=== PATIENT | male | born 1980 | race Caucasian/White ===

== ENCOUNTER 2016-12-12 02:47 | Emergency (ER) | payer MEDICARE, OTHER ==
[~2016-12-12] VITALS: Ht 180.3 cm; Wt 78.0 kg
[2016-12-12 02:50] VITALS: BP 135/75; PULSE 76; RESP 16; TEMP 99.6; O2SAT 96
[2016-12-12 05:21] VITALS: BP 151/94; PULSE 66; RESP 16; O2SAT 97
[2016-12-12] MEDS ORDERED: DOXE10CA PO (05:29)
[2016-12-12] MEDS ORDERED: NEUR300C PO (05:29)
[2016-12-12] MEDS ORDERED: CLOM50TA2 PO (05:29)
[2016-12-12] MEDS ORDERED: [UNRECOGNIZED DRUG - CODE] (05:29)
[2016-12-12] MEDS ORDERED: DULO1CAP3 PO (05:29)
[2016-12-12] MEDS ORDERED: BUPR100T4 PO (05:29)
[2016-12-12] MEDS ORDERED: NADO40TA PO (05:29)
[2016-12-12] MEDS ORDERED: CETI10 PO (05:29)
--- NOTE | 2016-12-12 05:29 | PD ---
HPI Chief Complaint: Abdominal Pain Time Seen by Provider: 05:29 Travel History International Travel<30 days: No Contact w/Intl Traveler<30days: No Traveled to known affect area: No History of Present Illness HPI 36-year-old male came to the emergency room with history of right sided abdominal pain that is acute on chronic. 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 He always has some pain on the right side but for past few days the pain has worsened. He is nauseous but no vomiting. No history of fever or chills. His vital signs were stable in the emergency room. Pain is worse on movement. Pain is just there most of the time and waxes and wanes. PFSH Past Medical History Narrative Medical List of his past medical, surgical, social and family history reviewed from the nursing note. Depression: Yes Diminished Hearing: No Gastrointestinal Disorders: Yes (portal vein htn) Tetanus Vaccination: < 5 Years Past Surgical History Cholecystectomy: Yes (2004) Other Surgery: Yes (sleenectomy 2004) Social History Alcohol Use: Yes (beer monthly) Tobacco Use: No Allergies-Medications (Allergen,Severity, Reaction): Coded Allergies: Reglan (Verified Adverse Reaction, Intermediate, Twitching, 12/12/16) Amoxicillin (Verified Adverse Reaction, Mild, Nausea/Vomiting, 12/12/16) Comments List of his allergies reviewed from the nursing note. Reported Meds & Prescriptions Reported Meds & Active Scripts Active Flagyl (Metronidazole) 250 Mg Tab 250 Mg PO TID 10 Days Ciprofloxacin (Ciprofloxacin HCl) 500 Mg Tab 500 Mg PO BID 10 Days Reported Clomiphene (Clomiphene Citrate) 50 Mg Tab 0.5 Tab PO DAILY Clomiphene (Clomiphene Citrate) 1 Powd Doxepin (Doxepin HCl) 10 Mg Cap 20 Mg PO HS Bupropion HCl 100 Mg Tab 150 Mg PO DAILY Cetirizine (Cetirizine HCl) 10 Mg Tab 10 Mg PO DAILY Nadolol 40 Mg Tab 40 Mg PO DAILY Duloxetine DR (Duloxetine HCl) 60 Mg Capdr 60 Mg PO DAILY Neurontin (Gabapentin) 300 Mg Cap 300 Mg PO TID Narrative Medication List of his home medications reviewed from the nursing note. Review of Systems Except as stated in HPI: all other systems reviewed are Neg Physical Exam Narrative GENERAL: Awake, alert, moderate distress SKIN: Focused skin assessment warm/dry. HEAD: Atraumatic. Normocephalic. EYES: Pupils equal and round. Slight scleral icterus. No injection or drainage. ENT: No nasal bleeding or discharge. Mucous membranes pink and moist. NECK: Trachea midline. No JVD. CARDIOVASCULAR: Regular rate and rhythm. No murmur appreciated. RESPIRATORY: No accessory muscle use. Clear to auscultation. Breath sounds equal bilaterally. GASTROINTESTINAL: Abdomen soft, right flank tenderness, nondistended. Hepatic and splenic margins not palpable. MUSCULOSKELETAL: No obvious deformities. No clubbing. No cyanosis. No edema. NEUROLOGICAL: Awake and alert. No obvious cranial nerve deficits. Motor grossly within normal limits. Normal speech. PSYCHIATRIC: Appropriate mood and affect; insight and judgment normal. Data Data Last Documented VS Orders Complete Blood Count With Diff (12/12/16 05:30) Comprehensive Metabolic Panel (12/12/16 05:30) Prothrombin Time / Inr (Pt) (12/12/16 05:30) Lipase (12/12/16 05:33) Ct Abd/Pel W/O Iv Contrast (12/12/16 ) Sodium Chlor 0.9% 1000 Ml Inj (Ns 1000 M (12/12/16 05:45) Morphine Inj (Morphine Inj) (12/12/16 05:45) Direct Bilirubin (12/12/16 05:33) Ciprofloxacin (Cipro) (12/12/16 07:00) Metronidazole (Flagyl) (12/12/16 07:00) Labs MDM Medical Decision Making Medical Screen Exam Complete: Yes Emergency Medical Condition: Yes Medical Record Reviewed: Yes Differential Diagnosis Colitis, acute appendicitis, acute on chronic abdominal pain Narrative Course 6:54 AM blood test results of back and patient has slight hyperbilirubinemia but otherwise within normal limits. CAT scan result is back and shows this nonspecific right-sided mesenteric edema with some tethering of the bowel loops. However given patient's previous surgical history these could be chronic changes with some acute exacerbation. No obstruction could be seen. I have given him a dose of Cipro and Flagyl and I'll discharge him home on prescription for those for 10 days. Procedures EKG Prior to Arrival: No Diagnosis Primary Impression: Abdominal pain Qualified Code: R10.11 - Right upper quadrant abdominal pain Additional Impression: Chronic abdominal pain Referrals: Primary Care Physician Additional Instructions: Please take the medication as per the prescription direction. Follow-up with her primary care in next couple days. Return to the ER if symptoms worsen or any other new concerns. Med/Other Pt SpecificInfo: Prescription(s) given Scripts Metronidazole (Flagyl)250 Mg [id number] Mg PO TID 10 Days Ref 0 Prov:Jabier Boyle MD 12/12/16 Ciprofloxacin 500 Mg [id number] Mg PO BID 10 Days Ref 0 Prov:Jabier Boyle MD 12/12/16 Disposition: DISCHARGE HOME Condition: Stable Jabier Boyle MD December 12, 2016 05:29 Basophils (%) (Auto) 1.6 % Neutrophils # (Auto) 6.4 TH/MM3 Lymphocytes # (Auto) 1.3 TH/MM3 Monocytes # (Auto) 1.1 TH/MM3 Eosinophils # (Auto) 0.1 TH/MM3 Basophils # (Auto) 0.1 TH/MM3 CBC Comment DIFF FINAL Differential Comment Prothrombin Time 11.8 SEC Prothromb Time International 1.1 RATIO Ratio Sodium Level 141 MEQ/L Potassium Level 4.0 MEQ/L Chloride Level 106 MEQ/L Carbon Dioxide Level 27.5 MEQ/L Anion Gap 8 MEQ/L Blood Urea Nitrogen 6 MG/DL Creatinine 0.71 MG/DL Estimat Glomerular Filtration 126 ML/MIN Rate Random Glucose 120 MG/DL Calcium Level 9.2 MG/DL Total Bilirubin 1.3 MG/DL Aspartate Amino Transf 49 U/L (AST/SGOT) Alanine Aminotransferase 41 U/L (ALT/SGPT) Alkaline Phosphatase 102 U/L Total Protein 8.3 GM/DL Albumin 3.7 GM/DL MDM Medical Decision Making Medical Screen Exam Complete: Yes Emergency Medical Condition: Yes Medical Record Reviewed: Yes Differential Diagnosis Colitis, acute appendicitis, acute on chronic abdominal pain Narrative Course 6:54 AM blood test results of back and patient has slight hyperbilirubinemia but otherwise within normal limits. CAT scan result is back and shows this nonspecific right-sided mesenteric edema with some tethering of the bowel loops. However given patient's previous surgical history these could be chronic changes with some acute exacerbation. No obstruction could be seen. I have given him a dose of Cipro and Flagyl and I'll discharge him home on prescription for those for 10 days. Procedures EKG Prior to Arrival: No Diagnosis Primary Impression: Abdominal pain Qualified Code: R10.11 - Right upper quadrant abdominal pain Additional Impression: Chronic abdominal pain Referrals: Primary Care Physician Additional Instructions: Please take the medication as per the prescription direction. Follow-up with her primary care in next couple days. Return to the ER if symptoms worsen or any other new concerns. Med/Other Pt SpecificInfo: Prescription(s) given Scripts Metronidazole (Flagyl)250 Mg [id number] Mg PO TID 10 Days Ref 0 Prov:Jabier Boyle MD 12/12/16 Ciprofloxacin 500 Mg [id number] Mg PO BID 10 Days Ref 0 Prov:Jabier Boyle MD 12/12/16 Disposition: 01 DISCHARGE HOME Condition: Stable Jabier Boyle MD December 12, 2016 05:29
[2016-12-12] MEDS ORDERED: MORPHINE SULFATE 4 MG/ML INJ IV PUSH ONE (05:45)
[2016-12-12] MEDS ORDERED: SODIUM CHLOR 0.9% 1000 ML INJ 1,000 ML IV ONE (05:45)
[2016-12-12 05:46] LABS: AUTOMATED NEUTROPHIL # 6.4 TH/MM3 (1.8-7.7); BASOPHIL # 0.1 TH/MM3 (0-0.2); BASOPHIL % 1.6 % (0.0-2.0); EOSINOPHIL # 0.1 TH/MM3 (0-0.4); EOSINOPHIL % 1.4 % (0.0-4.0); HEMATOCRIT 42.8 % (39.0-51.0); HEMO FLAGS DIFF FINAL; LYMPH % 13.8 % (9.0-44.0); LYMPHOCYTE # 1.3 TH/MM3 (1.0-4.8); MEAN CELL VOLUME 85.5 FL (80.0-100.0); MEAN CORPUSCULAR HEMOGLOBIN 30.3 PG (27.0-34.0); MEAN CORPUSCULAR HGB CONC 35.5 % (32.0-36.0); MONO % 12.4 % (0.0-8.0); NEUT % 70.8 % (16.0-70.0); PLATELET COUNT 418 TH/MM3 (150-450); RED CELL DISTRIBUTION WIDTH 14.4 % (11.6-17.2); WHITE BLOOD COUNT 9.1 TH/MM3 (4.0-11.0)
[2016-12-12 05:55] LABS: INTERNATIONAL NORMALIZED RATIO 1.1 RATIO; PROTHROMBIN TIME - PATIENT 11.8 SEC (9.8-11.6)
[2016-12-12 06:03] LABS: ALT (GPT) 41 U/L (12-78); ANION GAP 8 MEQ/L (5-15); AST (GOT) 49 U/L (15-37); BICARBONATE 27.5 MEQ/L (21.0-32.0); BLOOD UREA NITROGEN 6 MG/DL (7-18); CHLORIDE 106 MEQ/L (98-107); GLOMERULAR FILTRATION RATE 126 ML/MIN (>89); SODIUM (NA) 141 MEQ/L (136-145)
[2016-12-12 06:05] LABS: ALKALINE PHOSPHATASE 102 U/L (45-117); TOTAL BILIRUBIN ADULT 1.3 MG/DL (0.2-1.0)
--- NOTE | 2016-12-12 06:39 | RADRPT ---
EXAM DATE/TIME: 12/12/2016 06:08 [facility] COMPARISON: No previous studies available for comparison. INDICATIONS : Right upper quadrant pain with nausea and vomiting. ORAL CONTRAST: No oral contrast ingested. RADIATION DOSE: 21.37 CTDIvol (mGy) MEDICAL HISTORY : Hypertension. SURGICAL HISTORY : Cholecystectomy. Splenectomy. ENCOUNTER: Initial ACUITY: 1 day PAIN SCALE: 6/10 LOCATION: Right upper quadrant abdomen TECHNIQUE: Volumetric scanning of the abdomen and pelvis was performed. Using automated exposure control and ad justment of the mA and/or kV according to patient size, radiation dose was kept as low as reasonably achievable to obtain optimal diagnostic quality images. FINDINGS: Lung bases are clear. Mild fatty liver. Previous splenectomy with residual splenules in the left uppe r quadrant. Previous cholecystectomy. Adrenals, kidneys and pancreas unremarkable except for fatty re placement of the pancreas. There are some nonspecific inflammatory changes in the mesenteric fat in the lower right abdomen. No adjacent diverticulitis or appendicitis is identified. The adjacent bowel loops in the possibly relat ed to some form of effusion or evidence for obstruction. Bladder unremarkable no pelvic masses or elton e fluid. No free air. CONCLUSION: 1. Nonspecific inflammatory or edematous changes in the mesentery of the lower right abdomen associat ed with some possible scarring or tethering of bowel loops but without evidence for obstruction. No e vidence for diverticulitis or appendicitis. Mild constipation. 2. Previous splenectomy with residual splenules in left upper quadrant. Cholecystectomy. John Miramontes MD on December 12, 2016 at 6:29 Board Certified Radiologist. This report was verified electronically.
[2016-12-12] MEDS ORDERED: CIPR500T2 PO (06:57)
[2016-12-12] MEDS ORDERED: METR250 PO (06:57)
[2016-12-12] MEDS ORDERED: metroNIDAZOLE 500 MG TAB PO ONE (07:00)
[2016-12-12] MEDS ORDERED: CIPROFLOXACIN 500 MG TAB PO ONE (07:00)
[2016-12-12 07:15] VITALS: BP 124/62; PULSE 84; RESP 18; O2SAT 99
[2016-12-12 07:29] VITALS: BP 124/64
== END 2016-12-12 07:30 | disposition home or self-care (01) ==
LOC: NEPE 02:47
DX: R10.11 Right upper quadrant pain (principal); G89.29 Other chronic pain; Z90.49 Acquired absence of other specified parts of digestive tract; Z90.81 Acquired absence of spleen
CPT/HCPCS: 74176; 80053; 82248; 83690; 85025; 85610; 96361; 96374; 99285; J2270; J7030